=== PATIENT | male | born 2000 | race African-American/Black ===

== ENCOUNTER 2019-05-22 16:51 | Emergency (ER) | payer SELFPAY ==
--- NOTE | 2019-05-22 18:00 | RAD ---
XR Ankle Lt 3 View STANDARD History: Joint pain Comparison: None. Findings: No acute fracture or malalignment. No radiopaque foreign object appreciated. Mild soft tiss ue swelling. Impression: Mild soft tissue swelling without fracture, malalignment, or radiopaque foreign object.
--- NOTE | 2019-05-22 18:40 | ULT ---
US Venous Doppler Lt Unilat History: Snakebite. Pain. Comparison: None. Findings: Real-time grayscale, color, and spectral analysis of the left lower extremity venous system was performed. The common femoral, femoral, proximal portions greater saphenous and deep femoral veins as well as the popliteal and posterior tibial veins were interrogated. Impression: No deep venous thrombosis. Normal flow, augmentation, and compression.
== END 2019-05-22 19:08 | disposition home or self-care (01) ==
LOC: ERS 16:51
DX: T63.061A Toxic effect of venom of other North and South American snake, accidental (unintentional), initial encounter (principal); M79.89 Other specified soft tissue disorders; G43.909 Migraine, unspecified, not intractable, without status migrainosus

== ENCOUNTER 2019-08-18 10:04 | Emergency (ER) | payer SELFPAY ==
[2019-08-18] MEDS ORDERED: Ondansetron ODT 4 MG TAB ONE (10:53)
[2019-08-18] MEDS ORDERED: Haloperidol Lactate 5 MG/ML VIAL ONE (11:07)
[2019-08-18] MEDS ORDERED: Metoclopramide HCl 10 MG/2 ML VIAL ONE (11:07)
[2019-08-18] MEDS ORDERED: Ondansetron PF 4 MG/2 ML Vial ONE (11:07)
[2019-08-18 11:43] LABS: #Lymphocytes 1.4 thou/uL (1.20-3.40); #Monocytes 0.4 thou/uL (0.11-0.59); #Neutrophils 2.3 thou/uL (1.40-6.50); %Basophils 0.6 % (0.0-1.0); %Eosinophils 0.5 % (0.0-10.0); %Lymphocytes 34.5 % (28.0-48.0); %Monocytes 8.8 % (0.0-4.0); %Neutrophils 55.7 % (31.0-61.0); Hemoglobin 16.7 g/dL (14.0-18.0); Mean Corpuscular HGB CONC 34.1 g/dL (32.0-36.0); Mean Corpuscular Hemoglobin 29.4 pg (25.0-35.0); Mean Corpuscular Volume 86.4 fL (78.0-98.0); Mean Platelet Volume 7.3 fL (7.4-10.4); Platelet Count 196 thou/uL (130-400); Red Blood Cell (RBC) Count 5.69 mill/uL (4.00-5.20); White Blood Cell (WBC) Count 4.2 thou/uL (4.8-10.8)
[2019-08-18] MEDS ORDERED: diphenhydrAMINE 50 MG/ML VIAL ONE (11:47)
[2019-08-18 12:02] LABS: ALT (SGPT) 21 U/L (8-55); AST (SGOT) 23 U/L (5-34); Albumin 4.5 g/dL (3.5-5.0); Alkaline Phosphatase 46 U/L (50-130); Anion Gap 15 mmol/L (10-20); BUN (Urea Nitrogen) 11 mg/dL (8.9-20.6); Bilirubin, Total 0.8 mg/dL (0.2-1.2); CK (CPK) 390 U/L (30-200); Calc. Creatinine Clearance 0 mL/min (70-130); Calcium 9.8 mg/dL (7.8-10.44); Carbon Dioxide 27 mmol/L (22-29); Chloride 99 mmol/L (98-107); Estimated GFR-MDRD Greater than 90; Globulin 3.8 g/dL (2.4-3.5); Glucose 83 mg/dL (70-105); Potassium 4.5 mmol/L (3.5-5.1); Protein, Total 8.3 g/dL (6.0-8.3); Sodium 136 mmol/L (136-145)
== END 2019-08-18 12:53 | disposition home or self-care (01) ==
LOC: ERS 10:04
DX: F12.988 Cannabis use, unspecified with other cannabis-induced disorder (principal); E86.0 Dehydration; D57.00 Hb-SS disease with crisis, unspecified; G43.909 Migraine, unspecified, not intractable, without status migrainosus
CPT/HCPCS: 36415; 80053; 82550; 85025; 96361; 96365; 96375; J1200; J1630; J2405; J2765; Q0162

== ENCOUNTER 2021-12-29 20:54 | Emergency (ER) | payer SELFPAY | END 2021-12-29 21:19 | disposition left against medical advice (07) | LOC: ERS 20:54 | DX: Z53.21 Procedure and treatment not carried out due to patient leaving prior to being seen by health care provider (principal) ==

== ENCOUNTER 2022-02-24 10:49 | Emergency (ER) | payer SELFPAY ==
[2022-02-24] MEDS ORDERED: Acetaminophen 500 MG TAB ONE (12:05)
== END 2022-02-24 12:11 | disposition home or self-care (01) ==
LOC: ERS 10:49
DX: R51.9 Headache, unspecified (principal)
CPT/HCPCS: 99282

== ENCOUNTER 2022-08-27 22:14 | Emergency (ER) | payer SELFPAY ==
[2022-08-27] MEDS ORDERED: cefTRIAXone\\ROCEPHIN 500 MG VIAL ONE (23:42)
[2022-08-27] MEDS ORDERED: Lidocaine 1% MPF 2 ML VIAL ONE (23:42)
[2022-08-28 11:44] LABS: Chlam.trachomatis by PCR,Urine Not Detected (NotDetected)
== END 2022-08-28 00:48 | disposition home or self-care (01) ==
LOC: ERS 22:14
DX: R36.9 Urethral discharge, unspecified (principal)
CPT/HCPCS: 87491; 87591; 96372; 99283; J0696

== ENCOUNTER 2024-01-13 16:44 | Emergency (ER) | payer SELFPAY ==
[2024-01-13] MEDS ORDERED: Acetaminophen 500 MG TAB ONE (18:07)
[2024-01-13] MEDS ORDERED: Ibuprofen 200 MG TAB ONE (18:08)
== END 2024-01-13 19:09 | disposition home or self-care (01) ==
LOC: ERS 16:44
DX: G43.909 Migraine, unspecified, not intractable, without status migrainosus (principal)
CPT/HCPCS: 99283